=== PATIENT | female | born 1990 | race Caucasian/White ===

== ENCOUNTER 2017-09-11 08:55 | Emergency (ER) | payer OTHER ==
[2017-09-11 11:35] LABS: ADD MAN DIFF? NO
[2017-09-11 11:42] LABS: BASOPHILS % 0.4 % (0.0-2.0); EOSINOPHILS # 0.2 10^3/ul (0.0-0.5); EOSINOPHILS % 2.1 % (0.0-7.0); HEMATOCRIT 40.8 % (37.0-47.0); HEMOGLOBIN 14.1 g/dl (12.0-16.0); LYMPHOCYTES % 24.6 % (15.0-51.0); MEAN CORPUSCULAR HEMOGLOBIN 31.5 pg (29.0-33.0); MEAN CORPUSCULAR HGB CONC 34.6 g/dl (32.0-37.0); MEAN CORPUSCULAR VOLUME 91.1 fl (82.0-101.0); MEAN PLATELET VOLUME 11.2 fl (7.4-10.4); MONOCYTE # 0.4 10^3/ul (0.3-0.9); MONOCYTES % 4.8 % (0.0-11.0); NEUTROPHIL # 5.4 10^3/ul (1.6-7.5); NEUTROPHILS % 67.8 % (39.0-77.0); PLATELET COUNT 189 10^3/UL (140-415); RED BLOOD COUNT 4.48 10^6/ul (4.20-5.40); RED CELL DISTRIBUTION WIDTH 12.6 % (11.5-14.5)
[2017-09-11 12:07] LABS: ALANINE AMINOTRANSFERASE 20 IU/L (13-69); ALBUMIN/GLOBULIN RATIO 1.11; ALKALINE PHOSPHATASE 59 IU/L (42-121); ANION GAP 18 (8-16); ASPARTATE AMINO TRANSFERASE 26 IU/L (15-46); BILIRUBIN,INDIRECT 0.3 mg/dl (0-1.1); BILIRUBIN,TOTAL 0.3 mg/dl (0.2-1.3); BLOOD UREA NITROGEN 6 mg/dl (7-20); CALCIUM 10.2 mg/dl (8.4-10.2); CARBON DIOXIDE 24 mmol/L (21-31); CHLORIDE 105 mmol/L (97-110); CREATININE 0.52 mg/dl (0.44-1.00); GLUCOSE 74 mg/dl (70-220); LIPASE 30 U/L (23-300); POTASSIUM 3.6 mmol/L (3.5-5.1); SODIUM 143 mmol/L (135-144); TOTAL PROTEIN 9.5 g/dl (6.1-8.1)
[2017-09-11 12:27] LABS: POSITIVE DIFF @See below
[2017-09-11 13:33] LABS: UR CLARITY SLIGHTLY CLOUDY (CLEAR); UR COLOR YELLOW (YELLOW); UR SPECIFIC GRAVITY (Dip) 1.008 (1.003-1.030)
[2017-09-11 13:34] LABS: ADD UMIC YES; UR BILIRUBIN (Dip) NEGATIVE (NEGATIVE); UR BLOOD (Dip) 1+ mg/dL (NEGATIVE); UR GLUCOSE (Dip) NEGATIVE (NEGATIVE); UR KETONES (Dip) NEGATIVE (NEGATIVE); UR LEUKOCYTE ESTERASE (Dip) 3+ Leu/ul (NEGATIVE); UR NITRITE (Dip) NEGATIVE (NEGATIVE); UR TOTAL PROTEIN (Dip) NEGATIVE (NEGATIVE); UR UROBILINOGEN (Dip) NEGATIVE (NEGATIVE)
[2017-09-11 13:35] LABS: UR ASCORBIC ACID NEGATIVE (NEGATIVE)
[2017-09-11 13:42] LABS: URINE RBCS 0-2 /HPF (0)
[2017-09-11 13:43] LABS: UR BACTERIA FEW /HPF (NONE SEEN); UR SQUAMOUS EPITHELIAL CELL FEW /HPF (FEW)
== END 2017-09-11 14:04 | disposition home or self-care (01) ==
LOC: FTE 08:55
DX: O23.42 Unspecified infection of urinary tract in pregnancy, second trimester (principal); R10.2 Pelvic and perineal pain
CPT/HCPCS: 36415; 76805; 80053; 81001; 83690; 84702; 85025; 86900; 86901; 87081; 87086; 87210; 99284-25

== ENCOUNTER 2018-03-03 03:30 | Inpatient (IN) | payer MEDICAID ==
[2018-03-03] MEDS ORDERED: LIDOCAINE 1% (MPF) 30 ML INJ INJ (04:30)
[2018-03-03] MEDS ORDERED: CARBOPROST 250 MCG INJ IM (04:30)
[2018-03-03] MEDS ORDERED: BUTORPHANOL 2 MG INJ IV (04:30)
[2018-03-03] MEDS ORDERED: OXYTOCIN 30 UNITS/LR 500 ML IV ×2 (04:30)
[2018-03-03] MEDS ORDERED: MISOPROSTOL 200 MCG TAB PR (04:30)
[2018-03-03] MEDS ORDERED: IBUPROFEN 600 MG TAB PO (04:30)
[2018-03-03] MEDS ORDERED: METHYLERGONOVINE 0.2 MG INJ IM (04:30)
[2018-03-03] MEDS: LACTATED RINGER'S 1,000 ML IV* ×3 (04:33→09:41)
[2018-03-03 04:41] LABS: ADD MAN DIFF? NO
[2018-03-03 04:50] LABS: BASOPHILS % 0.3 % (0.0-2.0); EOSINOPHILS # 0.2 10^3/ul (0.0-0.5); EOSINOPHILS % 2.3 % (0.0-7.0); HEMATOCRIT 41.2 % (37.0-47.0); HEMOGLOBIN 13.9 g/dl (12.0-16.0); LYMPHOCYTES # 2.3 10^3/ul (0.8-2.9); MEAN CORPUSCULAR HEMOGLOBIN 31.5 pg (29.0-33.0); MEAN CORPUSCULAR HGB CONC 33.7 g/dl (32.0-37.0); MEAN CORPUSCULAR VOLUME 93.4 fl (82.0-101.0); MEAN PLATELET VOLUME 11.4 fl (7.4-10.4); MONOCYTE # 0.6 10^3/ul (0.3-0.9); MONOCYTES % 6.6 % (0.0-11.0); NEUTROPHIL # 5.9 10^3/ul (1.6-7.5); NEUTROPHILS % 65.2 % (39.0-77.0); PLATELET COUNT 160 10^3/UL (140-415); RED BLOOD COUNT 4.41 10^6/ul (4.20-5.40); RED CELL DISTRIBUTION WIDTH 13.4 % (11.5-14.5)
[2018-03-03 05:04] LABS: INR 1.01; PARTIAL THROMBOPLASTIN TIME 26.2 Sec (25.0-35.0); PROTIME 13.4 Sec (11.9-14.9)
[2018-03-03 05:30] LABS: HEPATITIS B SURFACE ANTIGEN NEGATIVE (NEGATIVE)
[2018-03-03] MEDS ORDERED: FENTAnyl 2MCG/ML-ROPIV 0.2% 100 ML (05:37)
[2018-03-03] MEDS ORDERED: NALOXONE (0.4 MG/ML) INJ IV (06:00)
[2018-03-03] MEDS ORDERED: FENTAnyl 2MCG/ML-ROPIV 0.2% 100 ML BAG EPI (06:00)
[2018-03-03] MEDS: FENTAnyl 2MCG/ML-ROPIV 0.2% 100 ML BAG EPI (07:42)
[2018-03-03] MEDS: OXYTOCIN 30 UNITS/LR 500 ML IV ×3 (09:40→16:03)
[2018-03-03] MEDS: MINERAL OIL LIGHT 10 ML VIAL TOP (11:28)
[2018-03-03] MEDS ORDERED: ONDANSETRON 4 MG INJ IV (13:30)
[2018-03-03] MEDS ORDERED: HYDROCODONE/APAP (5/325) TAB PO ×2 (13:30)
[2018-03-03] MEDS ORDERED: OXYCODONE/ASPIRIN (4.88/325) TAB PO ×2 (13:30)
[2018-03-03] MEDS: IBUPROFEN 600 MG TAB PO ×3 (13:52→23:46)
[2018-03-03] MEDS: ACETAMINOPHEN 325 MG TAB PO (14:55)
[2018-03-03 15:25] LABS: RAPID PLASMA REAGIN NONREACTIVE (NR)
[2018-03-03] MEDS: WITCH HAZEL/GLYCERIN PAD PR (21:38)
[2018-03-03] MEDS: SENNA/DOCUSATE NA (8.6MG/50MG) TAB PO (21:38)
[2018-03-03] MEDS: DIBUCAINE 1% 30 GM OINT PR (21:39)
[2018-03-03] MEDS: BENZOCAINE 20% 56 ML SPRAY TOP (21:39)
[2018-03-03] MEDS: LANOLIN 7 GM TUBE TOP (21:39)
[2018-03-04] MEDS: IBUPROFEN 600 MG TAB PO ×3 (06:16→16:02)
[2018-03-04 08:36] LABS: ADD MAN DIFF? NO
[2018-03-04 08:54] LABS: WHITE BLOOD COUNT 11.2 10^3/ul (4.8-10.8)
[2018-03-04 08:54] LABS: BASOPHILS % 0.4 % (0.0-2.0); EOSINOPHILS # 0.3 10^3/ul (0.0-0.5); EOSINOPHILS % 2.7 % (0.0-7.0); HEMATOCRIT 37.3 % (37.0-47.0); HEMOGLOBIN 12.7 g/dl (12.0-16.0); LYMPHOCYTES # 1.9 10^3/ul (0.8-2.9); LYMPHOCYTES % 16.8 % (15.0-51.0); MEAN CORPUSCULAR HEMOGLOBIN 32.3 pg (29.0-33.0); MEAN CORPUSCULAR VOLUME 94.9 fl (82.0-101.0); MEAN PLATELET VOLUME 11.6 fl (7.4-10.4); MONOCYTE # 0.6 10^3/ul (0.3-0.9); MONOCYTES % 5.3 % (0.0-11.0); NEUTROPHIL # 8.3 10^3/ul (1.6-7.5); NEUTROPHILS % 74.4 % (39.0-77.0); PLATELET COUNT 157 10^3/UL (140-415); RED BLOOD COUNT 3.93 10^6/ul (4.20-5.40); RED CELL DISTRIBUTION WIDTH 13.6 % (11.5-14.5)
[2018-03-04] MEDS: FERROUS SULFATE (EC) 325 MG TAB PO (09:14)
[2018-03-04] MEDS: SENNA/DOCUSATE NA (8.6MG/50MG) TAB PO ×2 (09:14→20:53)
[2018-03-05] MEDS: IBUPROFEN 600 MG TAB PO ×3 (00:48→11:47)
[2018-03-05] MEDS: MEASLES,MUMPS,RUBELLA VACCINE INJ SC* (09:00)
[2018-03-05] MEDS: FERROUS SULFATE (EC) 325 MG TAB PO (09:39)
[2018-03-05] MEDS: SENNA/DOCUSATE NA (8.6MG/50MG) TAB PO (09:39)
== END 2018-03-05 16:20 | disposition home or self-care (01) | DRG 775 ==
LOC: OBT 03:30 → L-D 03:30 → OBT 03:50 → L-D 03:50 → PP1 15:45
PROVIDERS: Obstetrics & Gynecology
PROC: 10E0XZZ Delivery of Products of Conception, External Approach (ICD-10-PCS; principal; 2018-03-03)
PROC: 0HQ9XZZ Repair Perineum Skin, External Approach (ICD-10-PCS; 2018-03-03)
DX: O77.0 Labor and delivery complicated by meconium in amniotic fluid (principal); O70.0 First degree perineal laceration during delivery; Z3A.39 39 weeks gestation of pregnancy; Z37.0 Single live birth
CPT/HCPCS: 62319; 85025; 85610; 85730; 86592; 86850; 86900; 86901; 87340; 88307; 99464